=== PATIENT | female | born 1990 | race Caucasian/White ===

== ENCOUNTER → 2016-12-05 | Outpatient (REF) | payer OTHER | LOC: M SFHCWAGY 15:59 | PROVIDERS: ATTEND Nurse Practitioner Family | DX: Z12.4 Encounter for screening for malignant neoplasm of cervix (principal) ==

== ENCOUNTER → 2017-06-10 | Outpatient (REF) | payer OTHER, SELFPAY | LOC: M LAB REF 16:57 | PROVIDERS: ATTEND Physician Assistant | DX: R30.0 Dysuria (principal) ==

== ENCOUNTER → 2017-06-13 | Outpatient (REF) | payer OTHER | LOC: M LAB REF 16:12 | PROVIDERS: ATTEND Physician Assistant | DX: R30.0 Dysuria (principal) ==

== ENCOUNTER → 2017-06-15 | Outpatient (REF) | payer OTHER ==
[2017-06-15 18:01] LABS: ALBUMIN 4.4 GM/DL (3.2-5.2); ALBUMIN/GLOBULIN RATIO 1.57 (1.00-1.93); ALKALINE PHOSPHATASE 78 U/L (45-117); ALT/SGPT 15 U/L (12-78); ANION GAP 6 MEQ/L (8-16); AST/SGOT 12 U/L (15-37); BILIRUBIN,TOTAL 0.5 MG/DL (0.2-1.0); BLOOD UREA NITROGEN 7 MG/DL (7-18); CALCIUM LEVEL 9.1 MG/DL (8.5-10.1); CARBON DIOXIDE LEVEL 31 MEQ/L (21-32); CHLORIDE LEVEL 103 MEQ/L (98-107); CREATININE FOR GFR 0.77 MG/DL (0.55-1.02); FREE T4 1.04 NG/DL (0.76-1.46); GLOMERULAR FILTRATION RATE > 60.0 (>60); GLUCOSE, FASTING 67 MG/DL (70-105); SODIUM LEVEL 140 MEQ/L (136-145); TOTAL PROTEIN 7.2 GM/DL (6.4-8.2)
[2017-06-15 19:04] LABS: BASO % 0.6 % (0.0-1.0); EOS % 0.6 % (0.0-3.0); LARGE UNSTAINED CELL # 0.1 K/mm3 (0.0-0.4); LARGE UNSTAINED CELL % 2.2 % (0.0-4.0); LYMPH # 1.2 K/mm3 (1.5-6.5); LYMPH % 19.8 % (24.0-44.0); MEAN CORPUSCULAR HEMOGLOBIN 29.2 pg (27.0-33.0); MEAN CORPUSCULAR VOLUME 83.4 fl (80.0-96.0); MONO # 0.5 K/mm3 (0.0-0.8); MONO % 8.5 % (0.0-5.0); NEUTROPHILS # 3.9 K/mm3 (1.8-7.7); NEUTROPHILS % 68.3 % (36.0-66.0); PLATELET COUNT, AUTOMATED 236 k/mm3 (150-450); RED CELL DISTRIBUTION WIDTH 12.2 % (11.5-14.5); WHITE BLOOD COUNT 5.7 K/mm3 (4.0-10.0)
== END ==
LOC: M SFHCPLAZ 15:52
PROVIDERS: ATTEND Nurse Practitioner Family
DX: Z00.00 Encounter for general adult medical examination without abnormal findings (principal); F41.9 Anxiety disorder, unspecified

== ENCOUNTER → 2018-09-17 | Outpatient (CLI) | payer OTHER | LOC: M RAD 17:12 | DX: M79.672 Pain in left foot (principal) | CPT/HCPCS: 73610 ==

== ENCOUNTER → 2019-02-05 | Outpatient (CLI) | payer BC ==
--- NOTE | 2019-02-06 02:09 | REP ---
Clinical: Neck pain . Technique: AP, lateral, flexion/extension, bilateral oblique, and open-mouth views. Findings: Alignment and lordosis is maintained. There is no evidence for acute fracture / compression injury or subluxation. No significant degenerative changes are appreciated. Oblique views demonstrate patent neural foramen. Open mouth view demonstrates normal C1-C2 articulation and odontoid process. Impression: Normal cervical spine series. Electronically Signed by Delbert Daigle MD 02/06/2019 02:01 A
== END ==
LOC: M RAD 10:21
PROVIDERS: ATTEND Nurse Practitioner Family
DX: M54.2 Cervicalgia (principal)

== ENCOUNTER → 2019-02-05 | Outpatient (REF) | payer BC ==
[2019-02-05 12:41] LABS: BLOOD UREA NITROGEN 8 MG/DL (7-18); CALCIUM LEVEL 9.2 MG/DL (8.5-10.1); CARBON DIOXIDE LEVEL 28 MEQ/L (21-32); CHLORIDE LEVEL 107 MEQ/L (98-107); CHOLESTEROL LEVEL 163 MG/DL (<200); CHOLESTEROL RISK RATIO 2.469 (<5); CREATININE FOR GFR 0.65 MG/DL (0.55-1.30); GLOMERULAR FILTRATION RATE > 60.0 (>60); GLUCOSE, FASTING 94 MG/DL (70-100); HDL CHOLESTEROL 66 MG/DL (>40); LDL CHOLESTEROL 88 MG/DL (<100); NON-HDL-C 97 MG/DL; POTASSIUM SERUM 4.6 MEQ/L (3.5-5.1); SODIUM LEVEL 140 MEQ/L (136-145); TRIGLYCERIDES LEVEL 44 MG/DL (<150)
== END ==
LOC: M SFHCPLAZ 09:21
PROVIDERS: ATTEND Nurse Practitioner Family
DX: Z00.00 Encounter for general adult medical examination without abnormal findings (principal); Z13.220 Encounter for screening for lipoid disorders

== ENCOUNTER → 2019-08-05 | Outpatient (REF) | payer BC | LOC: M SFHCWAGY 11:10 | PROVIDERS: ATTEND Nurse Practitioner Family | DX: N92.6 Irregular menstruation, unspecified (principal) ==

== ENCOUNTER → 2019-08-09 | Outpatient (CLI) | payer BC ==
--- NOTE | 2019-08-09 15:24 | REP ---
PELVIC ULTRASOUND: Real-time sonographic evaluation of the pelvis performed utilizing transabdominal and endovaginal technique. The bladder measures 10.3 x 10.5 x 11.2 cm. Uterus measures 9.1 x 4.1 x 5.1 cm. Endometrial thickness is 14 mm. Rounded echogenic area in the endometrium likely represents a polyp, 11 x 7 x 11 mm. There is no endometrial fluid collection. Right ovary measures 4.8 x 4.3 x 4.7 cm, enlarged, with a volume of 50.7 mL. There is a cyst with internal echoes and septations 3.0 x 2.6 x 3.0 cm. Left ovary is normal in size and echotexture, measuring 3.6 x 2.8 x 3.1 cm. There is no other evidence of adnexal mass. There is physiologic amount of free fluid in the cul-de-sac. RI right ovary 0.53 and left ovary 0.60 with duplex Doppler evaluation. IMPRESSION: There appears to be an endometrial polyp 11 x 7 x 13 mm. Small complex cyst with internal echoes and septations right ovary 3 cm in diameter. Electronically Signed by Lui Roa MD 08/13/2019 08:55 A
== END ==
LOC: M RAD 14:16
PROVIDERS: ATTEND Nurse Practitioner Family
DX: N84.0 Polyp of corpus uteri (principal); N83.291 Other ovarian cyst, right side

== ENCOUNTER → 2020-10-01 | Outpatient (REF) | payer BC | LOC: M SFHCPLAZ 10:09 | PROVIDERS: ATTEND Physician Assistant | DX: R30.0 Dysuria (principal) ==

== ENCOUNTER → 2020-10-22 | Outpatient (REF) | payer BC ==
[2020-10-22 13:55] LABS: HEMATOCRIT 43.5 % (36.0-47.0); HEMOGLOBIN 13.7 g/dl (12.0-15.5); MEAN CORPUSCULAR HEMOGLOBIN 25.5 pg (27.0-33.0); MEAN CORPUSCULAR HGB CONC 31.5 g/dl (32.0-36.5); PLATELET COUNT, AUTOMATED 260 10^3/uL (150-450); RED BLOOD COUNT 5.37 10^6/uL (4.00-5.40); WHITE BLOOD COUNT 3.3 10^3/uL (4.0-10.0)
[2020-10-22 14:15] LABS: ALBUMIN 4.4 GM/DL (3.2-5.2); ALT/SGPT 23 U/L (12-78); BILIRUBIN,TOTAL 0.7 MG/DL (0.2-1.0); BLOOD UREA NITROGEN 9 MG/DL (7-18); CALCIUM LEVEL 9.1 MG/DL (8.5-10.1); CARBON DIOXIDE LEVEL 31 MEQ/L (21-32); CHLORIDE LEVEL 105 MEQ/L (98-107); CREATININE FOR GFR 0.68 MG/DL (0.55-1.30); GLOMERULAR FILTRATION RATE > 60.0 (>60); GLUCOSE, FASTING 83 MG/DL (70-100); POTASSIUM SERUM 4.3 MEQ/L (3.5-5.1); SODIUM LEVEL 141 MEQ/L (136-145); TOTAL PROTEIN 7.1 GM/DL (6.4-8.2)
[2020-10-22 15:22] LABS: TOTAL 25(OH) VITAMIN D 18.7 NG/ML (30.0-100.0); VITAMIN B12 LEVEL 777 PG/ML
[2020-10-22 15:23] LABS: FOLATE 11.2 NG/ML
== END ==
LOC: M PLALAB 09:59
PROVIDERS: ATTEND Physician Assistant
DX: Z00.00 Encounter for general adult medical examination without abnormal findings (principal); Z78.9 Other specified health status

== ENCOUNTER → 2020-10-26 | Outpatient (CLI) | payer BC ==
--- NOTE | 2020-10-26 08:06 | REP ---
INDICATION: N84.0 ENDOMETRIAL POLYP COMPARISON: 08/09/2019, 10/11/2019 TECHNIQUE: Transabdominal pelvic ultrasound followed by transvaginal examination for better evaluation of the endometrium and adnexa with color Doppler evaluation of the ovaries. FINDINGS: Bladder is unremarkable and measures 11.0 x 10.0 x 10.1 cm. Normal anteverted uterus measures 6.8 x 3.1 x 4.9 cm. The endometrial complex measures 5 mm thickness. 10 x 7 x 4 mm hyperechoic structure within the endometrium is unchanged and consistent with the previously noted polyp. Bilateral ovaries are normal in vascularity without evidence for torsion. Right ovary measures 5.5 x 3.8 x 4.2 cm and includes 4.5 x 3.4 x 3.4 cm physiologic cyst; R I = 0.69. Left ovary measures 3.7 x 3.7 x 2.5 cm and includes multiple follicles; R I = 0.55 No pelvic fluid or adnexal mass lesion. IMPRESSION: 1. Stable hyperechoic focus within the endometrium consistent with previously identified polyp unchanged. 2. Physiologic cyst and follicles in the bilateral ovaries. No evidence for torsion. <Electronically signed by Delbert Daigle > 10/26/20 [id number]
== END ==
LOC: M WHC 06:37
PROVIDERS: ATTEND Nurse Practitioner Family
DX: N84.0 Polyp of corpus uteri (principal)

== ENCOUNTER → 2020-11-20 | Outpatient (REF) | payer BC ==
[2020-11-20 15:46] LABS: BASO # 0.1 10^3/uL (0.0-0.2); BASO % 1.1 % (0.0-1.0); EOS % 0.9 % (0.0-3.0); HEMATOCRIT 39.8 % (36.0-47.0); HEMOGLOBIN 12.8 g/dl (12.0-15.5); LYMPH # 1.2 10^3/uL (1.5-5.0); MEAN CORPUSCULAR HEMOGLOBIN 25.7 pg (27.0-33.0); MEAN CORPUSCULAR HGB CONC 32.2 g/dl (32.0-36.5); MEAN CORPUSCULAR VOLUME 79.8 fl (80.0-96.0); MONO # 0.3 10^3/uL (0.0-0.8); MONO % 7.6 % (0.0-5.0); NEUTROPHILS # 2.8 10^3/uL (1.5-8.5); NEUTROPHILS % 63.2 % (36.0-66.0); PLATELET COUNT, AUTOMATED 270 10^3/uL (150-450); RED BLOOD COUNT 4.99 10^6/uL (4.00-5.40); WHITE BLOOD COUNT 4.4 10^3/uL (4.0-10.0)
== END ==
LOC: M PLALAB 13:05
PROVIDERS: ATTEND Physician Assistant
DX: D72.819 Decreased white blood cell count, unspecified (principal)

== ENCOUNTER → 2021-01-15 | Outpatient (CLI) | payer BC ==
--- NOTE | 2021-01-16 19:56 | REP ---
INDICATION: LUMP IN NECK COMPARISON: None. TECHNIQUE: Directed Grayscale and color Doppler evaluation using linear high-frequency transducer. FINDINGS: Directed ultrasound examination at the site of patient's palpable masses performed. The 1st lesion superior to the left clavicle measures 11 x 4 x 7 mm and appears to be a relatively normal lymph node. The 2nd lesion is a somewhat hypoechoic avascular tubular superficial structure which is nonspecific but may represent thrombosed superficial vein. IMPRESSION: 1. Palpable lesions as described above likely representing normal lymph node and small thrombosed superficial vein. <Electronically signed by Delbert Daigle > 01/16/211951
== END ==
LOC: M RAD 16:12
PROVIDERS: ATTEND Physician Assistant
DX: R22.1 Localized swelling, mass and lump, neck (principal)

== ENCOUNTER → 2021-11-27 | Outpatient (CLI) | payer BC ==
[~2021-11-27] MED LIST: D31000TA2 PO; SERT25TA21 PO; TEST200I14 IM
== END ==
LOC: M LABSMTC 09:52
PROVIDERS: ATTEND Anesthesiology
DX: Z01.812 Encounter for preprocedural laboratory examination (principal); Z20.822 Contact with and (suspected) exposure to COVID-19

== ENCOUNTER 2021-12-02 06:46 | Observation (INO) | payer BC ==
[~2021-12-02] VITALS: Ht 175.3 cm; Wt 61.6 kg
[2021-12-02] VITALS (8 sets, daily range): BP systolic 112–136; BP diastolic 68–77
[~2021-12-02 06:46] MED LIST changes: +HEPARIN SOD (PORCINE) 5000UNITS/ML 1ML VIAL/SYRINGE SQ SCH; +LR 1,000 ML IV SCH
[2021-12-02] MEDS ORDERED: BUPIVACAINE LIPOSOME/PF 1.3% 20ML VIAL (13.3MG/ML)(EXPAREL)(C9290 PER1MG) As Ordered ONE (07:17)
[2021-12-02] MEDS ORDERED: GENTAMICIN SULF 80MG/2ML VIAL As Ordered ONE (07:17)
[2021-12-02] MEDS ORDERED: MIDAZOLAM INJ 2MG/2ML VIAL (J2250 PER 1MG) As Ordered ONE (07:20)
[2021-12-02] MEDS ORDERED: fentaNYL 250 MCG/5 ML INJECTION As Ordered ONE (07:20)
[2021-12-02] MEDS ORDERED: ONDANSETRON 4MG/2ML VIAL As Ordered ONE ×2 (07:20→09:21)
[2021-12-02] MEDS ORDERED: propofoL 200 MG/20 ML VIAL As Ordered ONE (07:20)
[2021-12-02] MEDS ORDERED: LIDOCAINE 2% 100MG/5ML SDV (FOR ANES.) As Ordered ONE (07:20)
[2021-12-02] MEDS ORDERED: dexameTHASONE 4 MG/ML 1ML VIAL (J1100 PER 1MG) As Ordered ONE (07:20)
[2021-12-02] MEDS ORDERED: ROCURONIUM BROMIDE 50 MG/5 ML VIAL As Ordered ONE ×2 (07:20→08:13)
[2021-12-02] MEDS ORDERED: SCOPOLAMINE 1MG TRANSDERMAL PATCH TOP ONE (07:40)
[2021-12-02] MEDS: ceFAZolin SOD 2 GM in IV 1 EA IV SCH (07:58)
[2021-12-02] MEDS ORDERED: METOCLOPRAMIDE INJ 10MG/2ML VIAL (J2765 PER 1) As Ordered ONE (08:01)
[2021-12-02] MEDS ORDERED: LACRILUBE (AKWA TEARS) OPHTH OINT 3.5 GM As Ordered ONE (08:08)
[2021-12-02] MEDS ORDERED: ACETAMINOPHEN 1000MG 100ML IV BTL (OFIRMEV) (J0131 PER 10MG) As Ordered ONE (08:08)
[2021-12-02] MEDS ORDERED: ePHEDrine SULFATE 25 MG/5 ML(5MG/ML) SYRINGE As Ordered ONE ×2 (08:18→09:02)
[2021-12-02] MEDS ORDERED: PHENYLephrine 500MCG 5ML (100MCG/ML) SYRINGE As Ordered ONE (08:36)
[2021-12-02] MEDS ORDERED: HYDROmorphone HCL 2MG/ML 1ML VIAL As Ordered ONE (09:15)
[2021-12-02] MEDS ORDERED: SUGAMMADEX SODIUM 500 MG/5 ML VIAL (BRIDION) As Ordered ONE (09:21)
[2021-12-02] MEDS ORDERED: ACETAMINOPHEN TAB 650MG DOSE (2X325MG) PO PRN (11:25)
[2021-12-02] MEDS ORDERED: KETOROLAC TROMETHAMINE 10 MG TAB PO PRN (11:25)
[2021-12-02] MEDS ORDERED: ONDANSETRON 4MG/2ML VIAL IV PRN ×2 (11:25→12:15)
[2021-12-02] MEDS: LR 1,000 ML IV SCH (11:25)
[2021-12-02] MEDS ORDERED: PERCOCET 5MG/325MG TAB PO PRN (12:15)
[2021-12-02] MEDS ORDERED: LR 1,000 ML IV SCH (12:15)
[2021-12-02] MEDS ORDERED: PROMETHAZINE INJ 25 MG/ML VIAL (J2550) IV PRN (12:15)
[2021-12-02] MEDS ORDERED: fentaNYL 100 MCG/2 ML INJECTION IV PRN (12:15)
[2021-12-02] MEDS: traMADol 50 MG TAB PO PRN ×2 (15:33→21:59)
[2021-12-02] MEDS: ceFAZolin SOD 1 GM in D5W MINI-BAG PLUS 50 ML IV SCH ×2 (15:33→23:59)
[2021-12-03] MEDS: LR 1,000 ML IV SCH (00:45)
[2021-12-03 02:00] VITALS: BP 98/56
[2021-12-03 04:00] VITALS: BP 99/54
[2021-12-03 08:00] VITALS: BP 133/72
[2021-12-03] MEDS: ceFAZolin SOD 1 GM in D5W MINI-BAG PLUS 50 ML IV SCH (08:30)
[2021-12-03] MEDS ORDERED: TRAM50TA2 PO (09:01)
== END 2021-12-03 13:14 | disposition home or self-care (01) ==
LOC: M SDC 06:46 → M MS5PR 06:47
PROVIDERS: ADMIT Plastic Surgery Surgery of the Hand; ATTEND Plastic Surgery Surgery of the Hand
DX: F64.9 Gender identity disorder, unspecified (principal); N62 Hypertrophy of breast; M54.2 Cervicalgia; M25.519 Pain in unspecified shoulder; F41.9 Anxiety disorder, unspecified; G56.03 Carpal tunnel syndrome, bilateral upper limbs; F90.9 Attention-deficit hyperactivity disorder, unspecified type; F42.9 Obsessive-compulsive disorder, unspecified; Z91.018 Allergy to other foods; Z79.899 Other long term (current) drug therapy
CPT/HCPCS: 19318; 19350; 81025; 88305; 96365; 96366; 96374; 96376; C9290; J0131; J0690; J1100; J1170; J1580; J1644; J2250; J2370; J2405; J2765; J3010

== ENCOUNTER → 2022-11-13 | Outpatient (REF) | payer BC ==
[~2022-11-13] MED LIST changes: -D31000TA2 PO; -HEPARIN SOD (PORCINE) 5000UNITS/ML 1ML VIAL/SYRINGE SQ SCH; -LR 1,000 ML IV SCH; +TRAM50TA2 PO; +VITA100093 PO
== END ==
LOC: M WUC 15:57
PROVIDERS: ATTEND Physician Assistant
DX: J02.9 Acute pharyngitis, unspecified (principal)

== ENCOUNTER → 2023-01-02 | Outpatient (REF) | payer OTHER, BC | LOC: M WUC 16:05 | PROVIDERS: ATTEND Physician Assistant | DX: R30.0 Dysuria (principal) ==

== ENCOUNTER 2023-02-07 14:19 | Inpatient (IN) | payer BC, MEDICAID, OTHER ==
[~2023-02-07] VITALS: Ht 175.3 cm; Wt 62.3 kg
[2023-02-07 15:19] LABS: HEMATOCRIT 47.6 % (36.0-47.0); HEMOGLOBIN 15.2 g/dl (12.0-15.5); MEAN CORPUSCULAR HEMOGLOBIN 25.3 pg (27.0-33.0); MEAN CORPUSCULAR HGB CONC 31.9 g/dl (32.0-36.5); MEAN CORPUSCULAR VOLUME 79.3 fl (80.0-96.0); PLATELET COUNT, AUTOMATED 343 10^3/uL (150-450); WHITE BLOOD COUNT 7.3 10^3/uL (4.0-10.0)
[2023-02-07 15:44] LABS: AMPHETAMINES LEVEL URINE NEGATIVE (NEGATIVE); BARBITURATES URINE NEGATIVE (NEGATIVE); BENZODIAZEPINES URINE NEGATIVE (NEGATIVE); COCAINE METABOLITE URINE NEGATIVE (NEGATIVE); METHADONE URINE NEGATIVE (NEGATIVE); OPIATES URINE NEGATIVE (NEGATIVE); PHENCYCLIDINE URINE NEGATIVE (NEGATIVE)
[2023-02-07 15:45] LABS: CANNABINOIDS URINE POSITIVE (NEGATIVE); ETHYL ALCOHOL (ETHANOL) < 0.003 % (0.000-0.010)
[2023-02-07 15:47] LABS: ACETAMINOPHEN LEVEL < 2.0 UG/ML (10.0-20.0); ALBUMIN 4.9 G/DL (3.2-5.2); ALKALINE PHOSPHATASE 109 U/L (46-116); ALT/SGPT 21 U/L (7.0-40); AST/SGOT 20 U/L (<34); BILIRUBIN,DIRECT 0.3 MG/DL (<0.4); BILIRUBIN,TOTAL 0.9 MG/DL (0.3-1.2); BLOOD UREA NITROGEN 6 MG/DL (9-23); CALCIUM LEVEL 9.8 MG/DL (8.5-10.1); CARBON DIOXIDE LEVEL 30 MMOL/L (20-31); CHLORIDE LEVEL 103 MMOL/L (98-107); CREATININE FOR GFR 0.64 MG/DL (0.55-1.30); GLOMERULAR FILTRATION RATE > 60.0 (>60); GLUCOSE, FASTING 85 MG/DL (60-100); POTASSIUM SERUM 3.9 MMOL/L (3.5-5.1); SALICYLATE LEVEL < 3.0 MG/DL (<30); SODIUM LEVEL 140 MMOL/L (136-145); TOTAL PROTEIN 7.7 G/DL (5.7-8.2)
[2023-02-07 15:50] LABS: HCG, SERUM QUALITATIVE NEGATIVE (NEGATIVE)
[2023-02-07 15:51] LABS: THYROID STIMULATING HORMONE 1.245 uIU/ML (0.55-4.78)
[2023-02-07] MEDS ORDERED: METR-265 PO (16:03)
[2023-02-07] MEDS ORDERED: ESTR10TA PO (17:59)
[2023-02-07] MEDS ORDERED: HOME MED LIST COMPLETE! XX SCH (18:00)
[2023-02-07] MEDS ORDERED: metroNIDAZOLE (FLAGYL) 500MG TABLET PO ONE (19:25)
[2023-02-07] MEDS ORDERED: MAALOX 30 ML SUSP *UDC PO PRN (20:30)
[2023-02-07] MEDS ORDERED: traZODone 50 MG TAB PO PRN (20:30)
[2023-02-07] MEDS ORDERED: LORazepam 1 MG TAB PO PRN (20:30)
[2023-02-07] MEDS ORDERED: MOM 30ML SUSPENSION UDC PO PRN (20:30)
[2023-02-07] MEDS ORDERED: ACETAMINOPHEN TAB 650MG DOSE (2X325MG) PO PRN (20:30)
[2023-02-07 22:33] VITALS: BP 122/72
[2023-02-08 07:01] VITALS: BP 130/56
[2023-02-08] MEDS: metroNIDAZOLE (FLAGYL) 500MG TABLET PO SCH ×2 (08:31→20:57)
[2023-02-08] MEDS ORDERED: hydrOXYzine 50 MG TAB PO PRN (14:10)
[2023-02-08 18:04] VITALS: BP 116/69
[2023-02-08] MEDS: PHENAZOPYRIDINE 100 MG TAB PO SCH (20:57)
[2023-02-08] MEDS ORDERED: metroNIDAZOLE 70GM VAGINAL GEL PV SCH (21:00)
[2023-02-09] MEDS ORDERED: PHEN1TAB73 PO (06:18)
[2023-02-09] MEDS ORDERED: TRAZ-252 PO (06:18)
[2023-02-09 06:22] VITALS: BP 126/63
[2023-02-09] MEDS: metroNIDAZOLE (FLAGYL) 500MG TABLET PO SCH (07:29)
[2023-02-09] MEDS: PHENAZOPYRIDINE 100 MG TAB PO SCH (07:29)
[2023-02-09 08:53] LABS: GC DNA AMPLIFICATION NEGATIVE (NEGATIVE)
== END 2023-02-09 10:51 | disposition home or self-care (01) | DRG 754 ==
LOC: M ED 14:19 → M ED INP 20:42 → M PSY 21:59
PROVIDERS: ADMIT Psychiatry & Neurology Psychiatry; ATTEND Psychiatry & Neurology Psychiatry
DX: F32.A Depression, unspecified (principal); F12.90 Cannabis use, unspecified, uncomplicated; F10.10 Alcohol abuse, uncomplicated; R45.851 Suicidal ideations; F64.0 Transsexualism; N77.1 Vaginitis, vulvitis and vulvovaginitis in diseases classified elsewhere; Z79.890 Hormone replacement therapy; Z79.899 Other long term (current) drug therapy; Z88.8 Allergy status to other drugs, medicaments and biological substances; Z91.018 Allergy to other foods; Z20.822 Contact with and (suspected) exposure to COVID-19

== ENCOUNTER 2023-02-15 14:16 | Inpatient (IN) | payer BC, MEDICAID, OTHER ==
[~2023-02-15] VITALS: Ht 175.3 cm; Wt 63.6 kg
[~2023-02-15 14:16] MED LIST changes: +ESTR10TA PO; +METR-265 PO; +PHEN1TAB73 PO; +TRAZ-252 PO
[2023-02-15] MEDS ORDERED: BOOSTRIX VACCINE (TETANUS/DIPHTH/ACEL. PERTUSSIS) 0.5ML SYR IM.IMMUN ONE (14:50)
[2023-02-15 15:37] LABS: HEMATOCRIT 49.3 % (36.0-47.0); HEMOGLOBIN 15.4 g/dl (12.0-15.5); MEAN CORPUSCULAR HEMOGLOBIN 24.9 pg (27.0-33.0); MEAN CORPUSCULAR HGB CONC 31.2 g/dl (32.0-36.5); MEAN CORPUSCULAR VOLUME 79.6 fl (80.0-96.0); PLATELET COUNT, AUTOMATED 330 10^3/uL (150-450); RED BLOOD COUNT 6.19 10^6/uL (4.00-5.40); WHITE BLOOD COUNT 11.3 10^3/uL (4.0-10.0)
[2023-02-15 15:55] LABS: AMPHETAMINES LEVEL URINE NEGATIVE (NEGATIVE); BENZODIAZEPINES URINE NEGATIVE (NEGATIVE); PHENCYCLIDINE URINE NEGATIVE (NEGATIVE)
[2023-02-15 15:56] LABS: BARBITURATES URINE NEGATIVE (NEGATIVE); CANNABINOIDS URINE NEGATIVE (NEGATIVE); COCAINE METABOLITE URINE NEGATIVE (NEGATIVE); METHADONE URINE NEGATIVE (NEGATIVE); OPIATES URINE NEGATIVE (NEGATIVE)
[2023-02-15 16:09] LABS: ETHYL ALCOHOL (ETHANOL) < 0.003 % (0.000-0.010)
[2023-02-15 16:10] LABS: ACETAMINOPHEN LEVEL < 2.0 UG/ML (10.0-20.0)
[2023-02-15 16:11] LABS: ALBUMIN 4.8 G/DL (3.2-5.2); ALKALINE PHOSPHATASE 96 U/L (46-116); ALT/SGPT 19 U/L (7.0-40); AST/SGOT 21 U/L (<34); BILIRUBIN,DIRECT 0.2 MG/DL (<0.4); BILIRUBIN,TOTAL 0.6 MG/DL (0.3-1.2); BLOOD UREA NITROGEN 7 MG/DL (9-23); CALCIUM LEVEL 9.5 MG/DL (8.5-10.1); CARBON DIOXIDE LEVEL 30 MMOL/L (20-31); CHLORIDE LEVEL 104 MMOL/L (98-107); CREATININE FOR GFR 0.65 MG/DL (0.55-1.30); GLOMERULAR FILTRATION RATE > 60.0 (>60); GLUCOSE, FASTING 87 MG/DL (60-100); SALICYLATE LEVEL < 3.0 MG/DL (<30); SODIUM LEVEL 141 MMOL/L (136-145)
[2023-02-15 16:13] LABS: THYROID STIMULATING HORMONE 1.343 uIU/ML (0.55-4.78)
[2023-02-15 16:15] LABS: HCG, SERUM QUALITATIVE NEGATIVE (NEGATIVE)
[2023-02-15] MEDS ORDERED: MAALOX 30 ML SUSP *UDC PO PRN (18:25)
[2023-02-15] MEDS ORDERED: IBUPROFEN 400MG TAB PO PRN (18:25)
[2023-02-15] MEDS ORDERED: ACETAMINOPHEN TAB 650MG DOSE (2X325MG) PO PRN (18:25)
[2023-02-15] MEDS ORDERED: MOM 30ML SUSPENSION UDC PO PRN (18:25)
[2023-02-15] MEDS ORDERED: TEST200I14 IM (21:55)
[2023-02-15] MEDS ORDERED: HOME MED LIST COMPLETE! XX SCH (22:00)
[2023-02-15] MEDS ORDERED: ESTR62CR PV (22:07)
[2023-02-15] MEDS ORDERED: VAGI10TA VA (22:07)
[2023-02-15 23:20] VITALS: BP 119/73
[2023-02-15] MEDS: traZODone 50 MG TAB PO PRN (23:31)
[2023-02-16 06:56] VITALS: BP 104/55
[2023-02-16 15:52] VITALS: BP 127/79
[2023-02-16] MEDS ORDERED: hydrOXYzine 50 MG TAB PO PRN (21:20)
[2023-02-16] MEDS: traZODone 50 MG TAB PO PRN (23:04)
[2023-02-16] MEDS: ESTROGENS VAGINAL CREAM 30GM PV SCH (23:05)
[2023-02-17 06:59] VITALS: BP 118/56
[2023-02-17] MEDS: lamoTRIgine 25MG TAB PO SCH (08:03)
[2023-02-17 17:42] VITALS: BP 127/73
[2023-02-17] MEDS: busPIRone 10 MG TAB PO SCH (21:38)
[2023-02-17] MEDS: ESTROGENS VAGINAL CREAM 30GM PV SCH (23:11)
[2023-02-18 06:00] VITALS: BP 102/60
[2023-02-18] MEDS: busPIRone 10 MG TAB PO SCH ×2 (08:38→20:35)
[2023-02-18 11:50] VITALS: BP 121/66
[2023-02-18] MEDS: lamoTRIgine 25MG TAB PO SCH (13:42)
[2023-02-18 18:00] VITALS: BP 120/64
[2023-02-18] MEDS: ESTROGENS VAGINAL CREAM 30GM PV SCH (22:46)
[2023-02-19 06:43] VITALS: BP 120/62
[2023-02-19] MEDS: busPIRone 10 MG TAB PO SCH ×2 (09:03→20:22)
[2023-02-19] MEDS: lamoTRIgine 25MG TAB PO SCH (09:03)
[2023-02-19 18:42] VITALS: BP 124/75
[2023-02-19] MEDS: ESTROGENS VAGINAL CREAM 30GM PV SCH (22:25)
[2023-02-20 06:53] VITALS: BP 124/67
[2023-02-20] MEDS: busPIRone 10 MG TAB PO SCH (08:12)
[2023-02-20] MEDS: lamoTRIgine 25MG TAB PO SCH (08:12)
[2023-02-20] MEDS ORDERED: BUSP10TA PO (11:52)
[2023-02-20] MEDS ORDERED: TRAZ-252 PO (11:52)
[2023-02-20] MEDS ORDERED: LAMI25TA PO (11:52)
== END 2023-02-20 13:14 | disposition home or self-care (01) | DRG 751 ==
LOC: M ED 14:16 → M ED INP 18:25 → M PSY 23:08
PROVIDERS: ADMIT Student in an Organized Health Care Education/Training Program; ATTEND Psychiatry & Neurology Psychiatry
DX: F33.2 Major depressive disorder, recurrent severe without psychotic features (principal); R45.851 Suicidal ideations; F12.10 Cannabis abuse, uncomplicated; F10.10 Alcohol abuse, uncomplicated; K44.9 Diaphragmatic hernia without obstruction or gangrene; F64.0 Transsexualism; Z79.890 Hormone replacement therapy; Z79.899 Other long term (current) drug therapy; Z88.8 Allergy status to other drugs, medicaments and biological substances; Z91.018 Allergy to other foods; Z20.822 Contact with and (suspected) exposure to COVID-19; Z81.8 Family history of other mental and behavioral disorders

== ENCOUNTER → 2023-06-02 | Outpatient (CLI) | payer MEDICAID, OTHER ==
[~2023-06-02] MED LIST changes: +BUSP10TA PO; +ESTR62CR PV; +LAMI25TA PO; +VAGI10TA VA
== END ==
LOC: M LAB 09:32
PROVIDERS: ATTEND Physician Assistant Medical
DX: R74.8 Abnormal levels of other serum enzymes (principal)

== ENCOUNTER → 2023-06-19 | Outpatient (CLI) | payer OTHER | LOC: M WUC 13:10 | PROVIDERS: ATTEND Student in an Organized Health Care Education/Training Program | DX: R21 Rash and other nonspecific skin eruption (principal) ==

== ENCOUNTER → 2023-08-04 | Outpatient (REF) | payer OTHER | LOC: M SFHCWAGY 09:54 | PROVIDERS: ATTEND Obstetrics & Gynecology | DX: R39.11 Hesitancy of micturition (principal) ==

== ENCOUNTER → 2023-11-14 | Outpatient (REF) | payer OTHER | LOC: M LAB REF 16:11 | PROVIDERS: ATTEND Physician Assistant | DX: R30.0 Dysuria (principal) ==

== ENCOUNTER 2024-04-22 22:31 | Emergency (ER) | payer OTHER ==
[~2024-04-22] VITALS: Ht 175.3 cm; Wt 67.8 kg
[2024-04-23 01:05] VITALS: BP 131/87; TEMP 97.8; O2SAT 96
== END 2024-04-23 02:30 | disposition left against medical advice (07) ==
LOC: M ED 22:31
DX: Z53.21 Procedure and treatment not carried out due to patient leaving prior to being seen by health care provider (principal)

== ENCOUNTER 2024-07-23 19:47 | Emergency (ER) | payer OTHER ==
[2024-07-23 19:53] VITALS: BP 129/88; TEMP 97.6; O2SAT 99
== END 2024-07-23 21:35 | disposition left against medical advice (07) ==
LOC: M ED 19:47
DX: Z53.21 Procedure and treatment not carried out due to patient leaving prior to being seen by health care provider (principal)

== ENCOUNTER 2024-08-03 11:36 | Inpatient (IN) | payer MEDICAID, OTHER ==
[~2024-08-03] VITALS: Ht 172.7 cm; Wt 63.5 kg
[2024-08-03 12:05] LABS: HEMATOCRIT 45.2 % (36.0-47.0); HEMOGLOBIN 15.3 g/dl (12.0-15.5); MEAN CORPUSCULAR HEMOGLOBIN 29.3 pg (27.0-33.0); MEAN CORPUSCULAR HGB CONC 33.8 g/dl (32.0-36.5); MEAN CORPUSCULAR VOLUME 86.6 fl (80.0-96.0); PLATELET COUNT, AUTOMATED 283 10^3/uL (150-450); RED BLOOD COUNT 5.22 10^6/uL (4.00-5.40); WHITE BLOOD COUNT 5.2 10^3/uL (4.0-10.0)
[2024-08-03 12:30] LABS: ETHYL ALCOHOL (ETHANOL) < 0.003 % (0.000-0.010)
[2024-08-03 12:32] LABS: ALBUMIN 4.2 G/DL (3.2-5.2); ALKALINE PHOSPHATASE 105 U/L (46-116); ALT/SGPT 36 U/L (7.0-40); AST/SGOT 32 U/L (<34); BILIRUBIN,DIRECT 0.2 MG/DL (<0.4); BILIRUBIN,TOTAL 0.7 MG/DL (0.3-1.2); BLOOD UREA NITROGEN 14 MG/DL (9-23); CALCIUM LEVEL 10.1 MG/DL (8.5-10.1); CARBON DIOXIDE LEVEL 31 MMOL/L (20-31); CHLORIDE LEVEL 106 MMOL/L (98-107); CREATININE FOR GFR 0.63 MG/DL (0.55-1.30); GLOMERULAR FILTRATION RATE > 60.0 (>60); GLUCOSE, FASTING 97 MG/DL (60-100); POTASSIUM SERUM 4.2 MMOL/L (3.5-5.1); SALICYLATE LEVEL < 3.0 MG/DL (<30); SODIUM LEVEL 138 MMOL/L (136-145)
[2024-08-03 12:34] LABS: THYROID STIMULATING HORMONE 1.173 uIU/ML (0.55-4.78)
[2024-08-03 12:41] LABS: HCG, SERUM QUALITATIVE NEGATIVE (NEGATIVE)
[2024-08-03 12:55] LABS: AMPHETAMINES LEVEL URINE NEGATIVE (NEGATIVE); BARBITURATES URINE NEGATIVE (NEGATIVE)
[2024-08-03 12:56] LABS: BENZODIAZEPINES URINE NEGATIVE (NEGATIVE); COCAINE METABOLITE URINE NEGATIVE (NEGATIVE); METHADONE URINE NEGATIVE (NEGATIVE); OPIATES URINE NEGATIVE (NEGATIVE); PHENCYCLIDINE URINE NEGATIVE (NEGATIVE)
[2024-08-03 13:00] LABS: CANNABINOIDS URINE POSITIVE (NEGATIVE)
[2024-08-03] MEDS: HALOPERIDOL LACTATE 5MG/ML VIAL IM ONE (21:57)
[2024-08-03] MEDS: diphenhydrAMINE 50MG/ML VIAL IM ONE (21:57)
[2024-08-03] MEDS: LORazepam 2 MG/ML 1ML VIAL IM ONE (21:57)
[2024-08-03] MEDS ORDERED: MED REC IN PROGRESS XX SCH (22:05)
[2024-08-03] MEDS ORDERED: MED REC CURRENTLY UNOBTAINABLE XX SCH (23:00)
[2024-08-04] MEDS ORDERED: LEXA1TAB2 PO (21:49)
[2024-08-04] MEDS ORDERED: BUPR150T12 PO (21:49)
[2024-08-04] MEDS ORDERED: IBUP200C25 PO (21:54)
[2024-08-04] MEDS ORDERED: AMPH1CAP14 PO (21:54)
[2024-08-04] MEDS ORDERED: PROBCAP14 PO (21:54)
[2024-08-04] MEDS ORDERED: ACET325C5 PO (21:54)
[2024-08-04] MEDS ORDERED: HOME MED LIST COMPLETE! XX SCH (21:55)
[2024-08-05] MEDS ORDERED: traZODone 50 MG TAB PO PRN (10:25)
[2024-08-05] MEDS ORDERED: MOM 30ML SUSPENSION UDC PO PRN (10:25)
[2024-08-05] MEDS ORDERED: MAALOX 30 ML SUSP *UDC PO PRN (10:25)
[2024-08-06 06:42] VITALS: BP 124/77; TEMP 97.3; O2SAT 98
[2024-08-06] MEDS: UNRESOLVED PATIENT OWN MED ORDER XX SCH (09:00)
[2024-08-06 16:17] VITALS: BP 136/83; TEMP 97.1; O2SAT 98
[2024-08-07 06:15] VITALS: BP 167/73; TEMP 97.6; O2SAT 98
[2024-08-07 06:30] VITALS: BP 140/93
[2024-08-07 15:49] VITALS: BP 140/81; TEMP 97.5; O2SAT 100
[2024-08-07] MEDS: TESTOSTERONE CYPIONATE 200 MG/ML IM SCH (21:54)
[2024-08-08] MEDS: IBUPROFEN 400MG TAB PO PRN (01:05)
[2024-08-08] MEDS: BACITRACIN OINTMENT 30GM TUBE TOP SCH (14:29)
[2024-08-08 14:53] VITALS: BP 136/88; TEMP 97.3; O2SAT 98
[2024-08-09 06:28] VITALS: BP 111/76; TEMP 97.2; O2SAT 99
[2024-08-09 15:40] VITALS: BP 131/72; TEMP 98; O2SAT 100
[2024-08-10 06:09] VITALS: BP 111/74; TEMP 97.2; O2SAT 100
[2024-08-10] MEDS: ACETAMINOPHEN TAB 650MG DOSE (2X325MG) PO PRN (09:29)
[2024-08-10 15:38] VITALS: BP 128/83; TEMP 97.9; O2SAT 98
[2024-08-10 15:39] VITALS: BP 123/55; TEMP 99; O2SAT 99
[2024-08-11 06:25] VITALS: BP 125/72; TEMP 98.4; O2SAT 100
[2024-08-11] MEDS: diphenhydrAMINE 25MG CAP PO PRN (08:26)
[2024-08-11] MEDS ORDERED: TESTOSTERONE CYPIONATE 200 MG/ML IM SCH (09:00)
[2024-08-11 15:57] VITALS: BP 131/65; TEMP 98.2; O2SAT 98
[2024-08-11] MEDS: OLANZapine ORAL DISINTEGRATING TAB 5MG PO ONE (18:59)
[2024-08-12 16:03] VITALS: BP 133/79; TEMP 97.5; O2SAT 100
[2024-08-13 06:34] VITALS: BP 140/82; TEMP 98.2; O2SAT 98
[2024-08-13 17:26] VITALS: BP_SYST 128; BP_SYST 140; BP_DIAS 72; BP_DIAS 78; TEMP 97.2; TEMP 99
[2024-08-14 06:22] VITALS: BP 139/74; TEMP 97.4; O2SAT 98
[2024-08-14] MEDS: ACETAMINOPHEN 325 MG TAB PO PRN (13:58)
[2024-08-14 15:19] VITALS: BP 131/79; TEMP 97.5; O2SAT 99
[2024-08-14] MEDS: OLANZapine ORAL DISINTEGRATING TAB 5MG PO PRN (20:35)
[2024-08-14] MEDS: OLANZapine 10 MG TAB PO SCH (20:40)
[2024-08-15] MEDS: LORazepam 2 MG TAB PO STA (00:20)
[2024-08-15 14:46] VITALS: BP 148/79; TEMP 97.7; O2SAT 99
[2024-08-15] MEDS: OLANZapine 5 MG TAB PO SCH (21:00)
[2024-08-15] MEDS: TESTOSTERONE CYPIONATE 200 MG/ML IM SCH (21:46)
[2024-08-16] MEDS ORDERED: OLAN1TAB16 PO (08:38)
[2024-08-17] MEDS ORDERED: ZYPR5TAB2 PO (05:57)
[2024-08-17] MEDS ORDERED: BENA25CA4 PO (06:07)
[2024-08-17] MEDS ORDERED: BACI50OI TOP (06:07)
[2024-08-17] MEDS ORDERED: TRAZ-252 PO (06:07)
[2024-08-17] MEDS ORDERED: MYLA1SUS PO (06:07)
[2024-08-17] MEDS ORDERED: ACET-910 PO (06:07)
[2024-08-17] MEDS ORDERED: IBUP-1114 PO (06:07)
== END 2024-08-16 12:35 | disposition home or self-care (01) | DRG 753 ==
LOC: M ED 11:36 → M ED INP 08-05 10:23 → M PSY 08-05 14:50
PROVIDERS: ADMIT Psychiatry & Neurology Psychiatry; ATTEND Psychiatry & Neurology Psychiatry
DX: F31.2 Bipolar disorder, current episode manic severe with psychotic features (principal); F64.9 Gender identity disorder, unspecified; F12.90 Cannabis use, unspecified, uncomplicated; F10.10 Alcohol abuse, uncomplicated; Z79.899 Other long term (current) drug therapy

== ENCOUNTER 2024-08-17 02:34 | Emergency (ER) | payer MEDICAID, OTHER ==
[~2024-08-17] VITALS: Ht 175.3 cm; Wt 63.6 kg
[~2024-08-17 02:34] MED LIST changes: +ACET325C5 PO; +AMPH1CAP14 PO; +BUPR150T12 PO; +IBUP200C25 PO; +LEXA1TAB2 PO; +OLAN1TAB16 PO; +PROBCAP14 PO
[2024-08-17 03:22] LABS: HEMATOCRIT 45.6 % (36.0-47.0); HEMOGLOBIN 15.6 g/dl (12.0-15.5); MEAN CORPUSCULAR HEMOGLOBIN 29.4 pg (27.0-33.0); MEAN CORPUSCULAR HGB CONC 34.2 g/dl (32.0-36.5); PLATELET COUNT, AUTOMATED 303 10^3/uL (150-450); WHITE BLOOD COUNT 11.5 10^3/uL (4.0-10.0)
[2024-08-17 03:42] LABS: AMPHETAMINES LEVEL URINE NEGATIVE (NEGATIVE); BARBITURATES URINE NEGATIVE (NEGATIVE); BENZODIAZEPINES URINE NEGATIVE (NEGATIVE); COCAINE METABOLITE URINE NEGATIVE (NEGATIVE); METHADONE URINE NEGATIVE (NEGATIVE)
[2024-08-17 03:43] LABS: CANNABINOIDS URINE POSITIVE (NEGATIVE); OPIATES URINE NEGATIVE (NEGATIVE); PHENCYCLIDINE URINE NEGATIVE (NEGATIVE)
[2024-08-17 03:45] LABS: ETHYL ALCOHOL (ETHANOL) < 0.003 % (0.000-0.010)
[2024-08-17 03:46] LABS: ALBUMIN 4.2 G/DL (3.2-5.2); ALKALINE PHOSPHATASE 105 U/L (46-116); ALT/SGPT 38 U/L (7.0-40); AST/SGOT 31 U/L (<34); BILIRUBIN,DIRECT 0.2 MG/DL (<0.4); BILIRUBIN,TOTAL 0.5 MG/DL (0.3-1.2); BLOOD UREA NITROGEN 9 MG/DL (9-23); CALCIUM LEVEL 9.8 MG/DL (8.5-10.1); CARBON DIOXIDE LEVEL 29 MMOL/L (20-31); CHLORIDE LEVEL 108 MMOL/L (98-107); CREATININE FOR GFR 0.55 MG/DL (0.55-1.30); GLOMERULAR FILTRATION RATE > 60.0 (>60); GLUCOSE, FASTING 81 MG/DL (60-100); SALICYLATE LEVEL < 3.0 MG/DL (<30); SODIUM LEVEL 141 MMOL/L (136-145)
[2024-08-17 03:48] LABS: HCG, SERUM QUALITATIVE NEGATIVE (NEGATIVE)
[2024-08-17 03:49] LABS: THYROID STIMULATING HORMONE 1.521 uIU/ML (0.55-4.78)
[2024-08-17] MEDS ORDERED: ZYPR5TAB2 PO (05:57)
[2024-08-17] MEDS ORDERED: BACI50OI TOP (06:07)
[2024-08-17] MEDS ORDERED: IBUP-1114 PO (06:07)
[2024-08-17] MEDS ORDERED: ACET-910 PO (06:07)
[2024-08-17] MEDS ORDERED: BENA25CA4 PO (06:07)
[2024-08-17] MEDS ORDERED: MYLA1SUS PO (06:07)
[2024-08-17] MEDS ORDERED: TRAZ-252 PO (06:07)
[2024-08-17] MEDS ORDERED: HOME MED LIST COMPLETE! XX SCH (06:10)
[2024-08-17] MEDS: LORazepam 1 MG TAB PO STA (08:40)
[2024-08-17 10:19] VITALS: BP 125/79; TEMP 97; O2SAT 98
== END 2024-08-17 10:21 | disposition home or self-care (01) ==
LOC: M ED 02:34
DX: F43.0 Acute stress reaction (principal); F32.A Depression, unspecified; F41.9 Anxiety disorder, unspecified; F19.10 Other psychoactive substance abuse, uncomplicated; Z88.8 Allergy status to other drugs, medicaments and biological substances; Z91.018 Allergy to other foods; Z79.1 Long term (current) use of non-steroidal anti-inflammatories (NSAID); Z79.899 Other long term (current) drug therapy